=== PATIENT | female | born 1990 | race Caucasian/White ===

== ENCOUNTER 2019-04-14 19:39 | Emergency (ER) | payer MEDICAID ==
[~2019-04-14] VITALS: Ht 154.9 cm; Wt 67.2 kg
[2019-04-14 19:45] VITALS: Ht 154.9 cm; Wt 67.2 kg
--- NOTE | 2019-04-14 20:07 | ERD ---
ER Documentation Chief Complaint Chief Complaint Pt reports fever and bodyaces since yesterday, Ibuprofen 800mg PO @1830 HPI This is a 29-year-old female presents to emergency department with complaints of fever that is uncontrolled since yesterday, complains of lung pain, vomited 3-4 times with nonbilious and nonbloody emesis today. LMP: 03/15/2019. A0. Denies head injury, loss of conscious, dizziness, neck pain, neck stiffness, dif ficult swallowing, difficult breathing lying flat, shoulder pain, chest pain, back pain, abdominal pain, constipation, diarrhea, trauma, injury, falls, difficulty walking, recent travel, recent long travel, recent exposure to any illness, recent antibiotic use in the last 3 months, fever, chills, seizures. Denies medical problems. Surgical history: x3. ROS All systems reviewed and are negative except as per history of present illness. Medications Home Meds Active Scripts Amoxicillin/Potassium Clav (Amox-Clav 875-125 mg Tablet) 875-125 mg Tab, 1 TAB PO BID for 10 Days, #20 TAB Prov:JESSYILABANLAAR F 04/14/19 Ondansetron Hcl* (Zofran*) 4 Mg Tablet, 4 MG PO Q8H PRN for NAUSEA AND/OR VOMITING, #30 TAB Prov:PASILABAN,KLAR F 04/14/19 Acetaminophen* (Tylenol*) 325 Mg Tablet, 2 TAB PO Q6 PRN for FEVER, #20 TAB Prov:PASILABAN,KLAR F 04/14/19 Ibuprofen* (Motrin*) 600 Mg Tab, 600 MG PO Q6H PRN for PAIN AND OR ELEVATED TEMP, #30 TAB Prov:PASILABAN,KLAR F 04/14/19 Allergies Allergies: Coded Allergies: No Known Allergy (Unverified , 04/14/19) Physical Exam Vitals Vital Signs Date Temp Pulse Resp B/P (MAP) Pulse Ox O2 O2 Flow FiO2 Time Delivery Rate 04/14/19 99.9 89 18 104/51 98 Room Air 20:44 (68) 04/14/19 102.2 107 20 115/56 98 19:45 (75) Physical Exam Const: No acute distress Head: Atraumatic Eyes: Normal Conjunctiva. Eyeballs are not sunken. No signs of severe dehydration. ENT: Normal External Ears, Nose and Mouth. Bilateral ears: TMs are not erythematous. No bleeding. No discharge with no hearing loss. No mastoid tenderness. Nose: Midline without deviation. There is no frontomaxillary sinus tenderness palpation. Throat: Uvula is midline nondisplaced. Tonsils are +2 bilaterally with mild redness and has exudates to the right. Tolerating secretions. Patent airway. Speaks full and clear sentences. Neck: Full range of motion. No meningismus. No nuchal rigidity with no signs of any irritation. Resp: Clear to auscultation bilaterally Cardio: Regular rate and rhythm, no murmurs Abd: Soft, non tender, non distended. Normal bowel sounds. Negative Brown sign. Negative Alexis sign (heel jar test). Negative psoas sign. Negative Rovsing sign. No CVA tenderness. Able to jump 10 times without developing lower abdominal pain. Skin: No petechiae or rashes. No skin tenting. No signs of severe dehydration. Back: No midline or flank tenderness Ext: No cyanosis, or edema Neur: Awake and alert. No neurological deficits. Psych: Normal Mood and Affect Results 24 hrs Laboratory Tests Test 04/14/19 20:24 Urine Color YELLOW Urine Clarity SLIGHTLY CLOUDY Urine pH 5.0 Urine Specific [place] 1.018 Urine Ketones NEGATIVE mg/dL Urine Nitrite NEGATIVE mg/dL Urine Bilirubin NEGATIVE mg/dL Urine Urobilinogen NEGATIVE mg/dL Urine Leukocyte Esterase NEGATIVE Ayden/ul Urine Microscopic RBC 2 /HPF Urine Microscopic WBC 2 /HPF Urine Squamous Epithelial Cells FEW /HPF Urine Bacteria FEW /HPF Urine Mucus FEW /HPF Urine Hemoglobin 2+ mg/dL Urine Glucose NEGATIVE mg/dL Urine Total Protein NEGATIVE mg/dl Urine Test NEGATIVE Current Medications Medications Dose Sig/Hong Start Time Status Last (Trade) Ordered Route PRN Stop Time Admin Dose Reason Admin 1,000 mg ONCE STAT 04/14/19 DC 04/14/19 Acetaminophen PO 20:09 20:19 (Tylenol 04/14/19 20:11 Tab) Ceftriaxone 1 gm ONCE ONCE 04/14/19 DC 04/14/19 Sodium IM 21:00 21:13 (Rocephin) 04/14/19 21:01 10 mg ONCE ONCE 04/14/19 DC 04/14/19 Dexamethasone IM 21:00 21:13 (Decadron) 04/14/19 21:01 Ondansetron 4 mg ONCE STAT 04/14/19 DC 04/14/19 HCl (Zofran ODT 20:54 21:12 Odt) 04/14/19 20:56 Famotidine 40 mg ONCE ONCE 04/14/19 DC 04/14/19 (Pepcid) PO 21:00 21:12 04/14/19 21:01 Procedures/MDM Diagnostic test: hCG urine: Negative. Urinalysis: Reviewed. Culture urine: Sent. Influenza a and B: Negative for influenza A. Negative for influenza B. Rapid strep screen: Positive. Throat culture: Sent. Chest x-ray: Treatment: Tylenol p.o. Ceftriaxone IM. Dexamethasone IM. Zofran ODT. Pepcid ODT. Reevaluation: Temperature responded to antipyretic medication. No nuchal rigidity. No signs of meningeal irritation. No accessory muscle use in breathing. No CVA tenderness. Lung sounds are clear to auscultation. Negative Brown sign. Negative Alexis sign (heel jar test). Negative psoas sign. Negative Rovsing sign. Able to jump 10 times without developing lower abdominal pain. Ambulatory with steady gait without pain to abdomen. No neurological deficits. Stated that she feels much better at this time. Patient and family member stated that they are comfortable going home. Differential diagnosis: I have low suspicion for sepsis, septic shock, meningitis, mastoiditis, peritonsillar abscess, pneumonia, bronchospasm, severe dehydration, cholecystitis, diverticulitis, diverticulitis with abscess, bowel obstruction, appendicitis, ruptured appendicitis, appendicitis with abscess, pyelonephritis, septic stone, obstructing kidney stone, pelvic inflammatory disease. Final diagnosis: Exudative tonsillitis. Fever. Prescription: Augmentin. Motrin. Tylenol. Zofran. Follow-up with PCP in the next 24 to 48 hours. Come back here in emergency department for any new symptoms or any worsening of symptoms. All questions and concerns were answered. Patient and family members verbalized understanding and agreed with the plan of care. Hemodynamically stable on discharge. Departure Diagnosis: Primary Impression: Exudative tonsillitis Additional Impressions: Strep throat Fever Condition: Stable Additional Instructions: Follow-up with PCP in the next 24 to 48 hours. Come back here in emergency department for any new symptoms or any worsening of symptoms. LINDSEY RING April 14, 2019 20:07
[2019-04-14] MEDS ORDERED: ACETAMINOPHEN 500 MG TAB PO STA (20:09)
[2019-04-14 20:44] VITALS: BP 104/51; PULSE 89; RESP 18
[2019-04-14] MEDS ORDERED: IBUP-1542 PO (20:47)
[2019-04-14] MEDS ORDERED: ACET325T33 PO (20:48)
[2019-04-14] MEDS ORDERED: ONDA4TAB8 PO (20:48)
[2019-04-14] MEDS ORDERED: AMOX1TAB10 PO (20:48)
[2019-04-14] MEDS ORDERED: ONDANSETRON (ODT) 4 MG TAB ODT STA (20:54)
[2019-04-14] MEDS ORDERED: CEFTRIAXONE 1 GM INJ IM ONE (21:00)
[2019-04-14] MEDS ORDERED: FAMOTIDINE 20 MG TAB PO ONE (21:00)
[2019-04-14] MEDS ORDERED: DEXAMETHASONE 10 MG/ML 1 ML INJ IM ONE (21:00)
== END 2019-04-14 21:22 | disposition home or self-care (01) ==
LOC: FTE 19:39
DX: J03.90 Acute tonsillitis, unspecified (principal); J02.0 Streptococcal pharyngitis
CPT/HCPCS: 71046; 81001; 84703; 87070; 87086; 87400; 87880; J0696; J1100; Z7610; 96372

== ENCOUNTER 2019-07-09 19:27 | Emergency (ER) | payer SELFPAY ==
[~2019-07-09] VITALS: Ht 154.9 cm; Wt 68.7 kg
[~2019-07-09 19:27] MED LIST: ACET325T33 PO; AMOX1TAB10 PO; BENZ1LOZ52 MM; IBUP-1542 PO; ONDA4TAB8 PO
[2019-07-09 19:39] VITALS: Ht 154.9 cm; Wt 68.7 kg
[2019-07-09] MEDS ORDERED: PENICILLIN G BENZ 1.2 MIL UNIT SYG IM ONE (22:00)
[2019-07-09] MEDS ORDERED: IBUPROFEN 600 MG TAB PO ONE (22:00)
[2019-07-09 22:53] VITALS: BP 117/57; PULSE 87; RESP 16
[2019-07-09] MEDS ORDERED: PENICILLIN G BENZ 2.4 MIL UNIT SYG IM SCH (23:00)
== END 2019-07-09 22:54 | disposition home or self-care (01) ==
LOC: FTE 19:27
DX: J02.0 Streptococcal pharyngitis (principal)
CPT/HCPCS: 96372; J0561